=== PATIENT | female | born 1935 | race Caucasian/White ===

== ENCOUNTER 2022-09-14 12:50 | Inpatient (IN) | payer OTHER ==
[~2022-09-14] VITALS: Ht 154.9 cm; Wt 84.8 kg
[2022-09-14] MEDS ORDERED: CRESTOR5 MG (13:01)
[2022-09-14] MEDS ORDERED: MIRAPEX0.125 MG (13:02)
[2022-09-14] MEDS ORDERED: VISTARIL25 MG PO (13:02)
== END 2022-09-18 16:58 | disposition home or self-care (01) | DRG 178 ==
LOC: ER 12:50 → MEDJ 22:35
PROVIDERS: ADMIT Internal Medicine; ATTEND Internal Medicine
DX: U07.1 COVID-19 (principal); E87.1 Hypo-osmolality and hyponatremia; N39.0 Urinary tract infection, site not specified; Z16.12 Extended spectrum beta lactamase (ESBL) resistance; G20 Parkinson's disease; G30.9 Alzheimer's disease, unspecified; F02.80 Dementia in other diseases classified elsewhere, unspecified severity, without behavioral disturbance, psychotic disturbance, mood disturbance, and anxiety; E03.9 Hypothyroidism, unspecified; B96.20 Unspecified Escherichia coli [E. coli] as the cause of diseases classified elsewhere; D72.818 Other decreased white blood cell count